=== PATIENT | male | born 1955 | race African-American/Black ===

== ENCOUNTER 2017-03-28 16:59 | Emergency (ER) | payer MEDICAID, OTHER ==
[~2017-03-28] VITALS: Ht 175.3 cm; Wt 86.2 kg
[~2017-03-28 16:59] MED LIST: CYCL10TA2 PO; HYDR-971 PO; METH4TAB2 PO; TRIA15OI TP
[2017-03-28 17:08] VITALS: BP 146/87
[2017-03-28] MEDS ORDERED: METH-37 PO (17:32)
[2017-03-28] MEDS ORDERED: IBUP-1060 PO (17:32)
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
== END 2017-03-28 17:51 | disposition home or self-care (01) ==
LOC: ER 16:59
DX: S16.1XXA Strain of muscle, fascia and tendon at neck level, initial encounter (principal); I10 Essential (primary) hypertension; E78.00 Pure hypercholesterolemia, unspecified; Z95.1 Presence of aortocoronary bypass graft; X58.XXXA Exposure to other specified factors, initial encounter; Y93.89 Activity, other specified; Y99.8 Other external cause status; Y92.89 Other specified places as the place of occurrence of the external cause
CPT/HCPCS: 99283

== ENCOUNTER 2017-05-17 14:53 | Emergency (ER) | payer OTHER ==
[~2017-05-17] VITALS: Ht 175.3 cm; Wt 87.1 kg
[~2017-05-17 14:53] MED LIST changes: +IBUP-1060 PO; +METH-37 PO
[2017-05-17 14:58] VITALS: BP 165/100
[2017-05-17] MEDS ORDERED: IBUP-1060 PO (16:11)
[2017-05-17] MEDS ORDERED: CYCL10TA2 PO (16:11)
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
== END 2017-05-17 16:25 | disposition home or self-care (01) ==
LOC: ER 14:53
DX: I10 Essential (primary) hypertension (principal); G89.29 Other chronic pain; M54.5 Low back pain; E78.00 Pure hypercholesterolemia, unspecified; Z95.1 Presence of aortocoronary bypass graft
CPT/HCPCS: 99283

== ENCOUNTER 2017-08-22 12:08 | Emergency (ER) | payer OTHER ==
[2017-08-22 12:37] VITALS: BP 131/96
[2017-08-22] MEDS ORDERED: TRAM50TA PO (12:47)
[2017-08-22] MEDS ORDERED: NAPR500T4 PO (12:47)
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
== END 2017-08-22 12:52 | disposition home or self-care (01) ==
LOC: ER 12:08
DX: M79.605 Pain in left leg (principal); E78.00 Pure hypercholesterolemia, unspecified; I10 Essential (primary) hypertension; Z95.1 Presence of aortocoronary bypass graft
CPT/HCPCS: 99283